=== PATIENT | female | born 1985 | race Caucasian/White ===

== ENCOUNTER 2019-01-22 12:30 | Observation (INO) ==
--- NOTE | 2019-01-22 13:12 | Emergency Department Note ---
Entered by Marimar Begum acting as a scribe for Cruz Colvin MD History of Present Illness General Chief complaint: TIA Symptoms Stated complaint: STROKE SYMTOMS Time Seen by Provider: 01/22/19 12:38 Source: patient History of Present Illness Onset (ago): day(s) (yesterday morning) Location: head Pain Consistency: + other (episode) Quality: + other (TIA symptoms) Associated symptoms: + denies other symptoms (vision changes, abdominal pain), + fever/chills (chills), + headaches, + nausea/vomiting (nausea) and + other (feeling like she is drooling, bright lights bothering her, hot flashes, lightheadedness, trouble walking); no cough The patient is a 33 year old female who presents to the Emergency Room with complaints of an episode of TIA symptoms starting yesterday morning. The patient states that 3 mornings ago she woke up at 4 AM to use the restroom. She reports that when she did she fell because the whole left side of her body was numb. She states that she couldnt speak either and ended up having bladder incontinence. She states that she went to [facility] where they did an EEG, MRI, CTA, echo, and evaluated her carotids, but everything was negative. She reports that they kept her for till the next day before discharging her home. She notes that they told her it was either migraines or TIAs. She notes that they started her on Aspirin. She reports that during that time, her left sided weakness persisted, but her slurred speech got better. She notes that it was almost back to normal when she was discharged. The patient states that yesterday morning, she then woke up with slurred speech again. She states that she followed up with her PCP who told her to come to the ED if it did not get better by today. She reports that she came to the ED because it did not get better and she started to develop a frontal headache. The patient complains of feeling like she is drooling, bright lights bothering her, hot flashes, chills, nausea, lightheadedness, and trouble walking. The patient denies vision changes, cough, abdominal pain, and the chance of . Home Medications Home Medications Medication Instructions Recorded Confirmed Type alprazolam [Xanax] 0.5 mg PO UD PRN 01/22/19 01/22/19 History aspirin [Aspirin Low Dose] 81 mg PO QAM 01/22/19 01/22/19 History ibuprofen 400 mg PO Q6H PRN 01/22/19 01/22/19 History melatonin 5 mg PO HS PRN 01/22/19 01/22/19 History phentermine 37.5 mg PO QAM 01/22/19 01/22/19 History tramadol 50 mg PO Q4H PRN 01/22/19 01/22/19 History Allergies Allergy/AdvReac Type Severity Reaction Status Date / Time No Known Allergies Allergy Unverified 01/22/19 13:35 Past Med/Surg History Medical History No known health problems Family History Other No significant family history Social History Preferred Language: Turkmen marital status: Current Living Situation: Family current occupational status: employed Feels Safe at Home: Yes Review of Systems See HPI for pertinent positives & negatives. and A total of 10 systems reviewed and were otherwise negative Physical Exam Vital Signs Vital Signs - 24 hr 01/22/19 12:32 01/22/19 13:15 01/22/19 14:32 Temperature 36.9 C Temperature Source Oral Sepsis Recent Fever Within 48 Hours No Sepsis New/Unexplained Change in Mental Status No Sepsis Action Taken by Nursing No Action Required Pulse Rate 89 Pulse Rate [Left Finger] 82 75 Respiratory Rate 16 15 20 Respiratory Effort / Characteristics Non-Labored Spontaneous Non-Labored Non-Labored Respiratory Depth Normal Normal Normal Respiratory Pattern Regular Regular Blood Pressure 132/89 Blood Pressure [Right Arm] 126/76 134/74 Blood Pressure Mean 103 Blood Pressure Mean [Right Arm] 92 94 Blood Pressure Position Sitting Pulse Oximetry 100 96 95 Oxygen Delivery Method Room Air Room Air Room Air 01/22/19 15:00 01/22/19 16:00 01/22/19 17:17 Temperature Temperature Source Sepsis Recent Fever Within 48 Hours Sepsis New/Unexplained Change in Mental Status Sepsis Action Taken by Nursing Pulse Rate Pulse Rate [Left Finger] 81 74 81 Respiratory Rate 17 19 21 Respiratory Effort / Characteristics Non-Labored Non-Labored Non-Labored Respiratory Depth Normal Normal Normal Respiratory Pattern Regular Regular Regular Blood Pressure Blood Pressure [Right Arm] 104/59 L 99/71 L 105/80 Blood Pressure Mean Blood Pressure Mean [Right Arm] 74 80 88 Blood Pressure Position Pulse Oximetry 99 97 100 Oxygen Delivery Method Room Air Room Air Room Air 01/22/19 18:00 Temperature Temperature Source Sepsis Recent Fever Within 48 Hours Sepsis New/Unexplained Change in Mental Status Sepsis Action Taken by Nursing Pulse Rate Pulse Rate [Left Finger] 84 Respiratory Rate 84 H Respiratory Effort / Characteristics Non-Labored Respiratory Depth Normal Respiratory Pattern Regular Blood Pressure Blood Pressure [Right Arm] 110/76 Blood Pressure Mean Blood Pressure Mean [Right Arm] 87 Blood Pressure Position Pulse Oximetry 95 Oxygen Delivery Method Room Air General: Non-ill appearing young female who has dysarthric speech. She has no word finding problems, but is difficult to understand some words due to tongue weakness. HEENT: Normal cephalic atraumatic. Pupils are equal round and reactive to light. Extraocular movements are intact. Oropharynx is pink with moist mucous membranes. No swelling of the mouth lips or tongue. Neck: Supple with a midline trachea. No meningeal signs or stiffness, no JVD or bruits. No Stridor. Chest: Clear to auscultation bilaterally. No wheezes or rhonchi. No increased work of breathing. Heart: regular rate and rhythm. Abdomen: Soft nontender, nondistended without rebound guarding or rigidity. Extremities: No cyanosis clubbing or edema. No calf tenderness or asymmetry Spine/Back. Non tender to palpation. No CVA tenderness Skin: Good turgor without rashes. Neurologic exam: Cranial nerves two through 12 are intact. Sensation are intact and symmetrical throughout. Some mild weakness of the left side which she says has been there since Sunday. Course 1239: Past medical records reviewed. The patient was evaluated in room C4. A complete history and physical exam was performed. 1308: I reevaluated the patient and she is resting comfortably. They are currently placing her IV. 1402: I reevaluated the patient and she is becoming nauseated. She reports that she did receive Phenergan in the hospital. I am going to emergency services director her some Benadryl. She notes that she had trouble speaking prior to receiving the Phenergan. 1510: Upon reevaluation, the patient is resting comfortably. I discussed findings and results with her. She verbalized agreement of the treatment plan. 1514: I discussed the patient's case with Dr. Sara GARZA Hospitalist. She will evaluate the patient for further management and requested that I speak to a neurologist. 1521: I discussed the patient's case with Dr. Weinberg- Neurologist. He states that h e will repeat the MRI and that it could still be a migraine if the MRI is negative. 1731: I reevaluated the patient and she is stable. She asked if she could go home and I recommended that she stay. She is will to stay. Consultations Consultation #1: I discussed the patient's case with Dr. Sara GARZA Hospitalist. She will evaluate the patient for further management and requested that I speak to a neurologist. Time: 15:14 Consultation #2: I discussed the patient's case with Dr. Weinberg- Neurologist. He states that he will repeat the MRI and that it could still be a migraine if the MRI is negative. Time: 15:21 Administered Medications Gadobutrol (Gadavist 65ml) 9.5 ml IV ONCE PRN PRN Reason: Interaction Checking Stop: 01/26/19 18:52 Last Admin: 01/22/19 18:54 Dose: 9.5 ml Documented by: [id number] Ioversol (Optiray 320 125ml) 119 ml IV ONCE PRN PRN Reason: Interaction Checking Stop: 01/26/19 14:06 Last Admin: 01/22/19 14:07 Dose: 119 ml Documented by: [id number] Discontinued Medications Diphenhydramine HCl (Benadryl) 12.5 mg IV NOW STA Stop: 01/22/19 14:02 Last Admin: 01/22/19 14:27 Dose: 12.5 mg Documented by: [id number] Medical Decision Making Differential Diagnosis Differential diagnoses include stroke, TIA, vascular pathology, electrolyte or metabolic abnormality. Medical Records Attestation: I reviewed the patient's medical records. Home Medications Current Medication List: was personally reviewed by me Laboratory Data Attestation: I reviewed the patient's lab results. Result diagrams: 01/22/19 13:09 01/22/19 13:09 Lab Results 01/22/19 01/22/19 01/22/19 Range/Units 12:51 13:09 13:09 WBC 4.51 L (4.8-10.8) K/uL RBC 5.01 (4.2-5.4) M/uL Hgb 14.3 (12.0-16.0) g/dL POC Hgb (12.0-16.0) g/dl Hct 44.8 (37-47) % POC Hct (37-47) % MCV 89.4 (80-100) fL MCH 28.5 (25-34) pg MCHC 31.9 L (32-36) g/dL RDW Std Deviation 41.6 (36.4-46.3) fL RDW Coeff of Crow 12.8 (11.5-14.5) % Plt Count 207 (130-400) K/uL MPV 10.3 (7.4-10.4) fL Immature Gran % (Auto) 0.2 % Neut % (Auto) 55.5 % Lymph % (Auto) 29.5 % [place] % (Auto) 13.5 % Eos % (Auto) 0.9 % Baso % (Auto) 0.4 % Immature Gran # (Auto) 0.01 (0.00-0.02) K/uL Neut # (Auto) 2.50 (1.4-6.5) K/uL Lymph # (Auto) 1.33 (1.2-3.4) K/uL [place] # (Auto) 0.61 H (0.11-0.59) K/uL Eos # (Auto) 0.04 (0-0.5) K/uL Baso # (Auto) 0.02 (0-0.2) K/uL PT 10.0 (9.0-12.0) Seconds INR 1.0 (0.9-1.1) APTT 24.1 (21.0-31.0) Seconds PTT Ratio 0.9 POC Sodium (135-144) mEq/L Sodium (136-145) mmol/L POC Potassium (3.3-5.0) mEq/L Potassium (3.5-5.1) mmol/L POC Chloride (101-112) mEq/L Chloride (98-107) mmol/L Carbon Dioxide (21-32) mmol/L POC Total CO2 (24-31) mEq/l Anion Gap (3-11) POC Anion Gap (16-25) mmol/L POC BUN (7-18) mg/dl BUN (7-18) mg/dl Creatinine (0.6-1.2) mg/dl POC Creatinine (0.6-1.3) mg/dl Est Cr Clr Drug Dosing ml/min Est GFR ( Amer) Est GFR (Non-Af Amer) BUN/Creatinine Ratio (10-20) Glucose (70-99) mg/dl POC Glucose 85 (70-99) POC Glucose (other) (70-99) mg/dl Calcium (8.5-10.1) mg/dl POC Ioniz Calcium Zach (1.12-1.32) mmol/l Magnesium (1.8-2.4) mg/dl Total Bilirubin (0.2-1) mg/dl AST (15-37) U/L ALT (12-78) U/L Alkaline Phosphatase (45-117) U/L Troponin I (0-0.045) ng/ml Total Protein (6.4-8.2) gm/dl Albumin (3.4-5.0) gm/dl Globulin (2.5-4.0) gm/dl Albumin/Globulin Ratio (0.9-2) Lyme Disease IgG Ab (Negative) Lyme Disease IgM Ab (Negative) 01/22/19 01/22/19 01/22/19 Range/Units 13:09 13:09 13:17 WBC (4.8-10.8) K/uL RBC (4.2-5.4) M/uL Hgb (12.0-16.0) g/dL POC Hgb 15.3 (12.0-16.0) g/dl Hct (37-47) % POC Hct 45 (37-47) % MCV (80-100) fL MCH (25-34) pg MCHC (32-36) g/dL RDW Std Deviation (36.4-46.3) fL RDW Coeff of Crow (11.5-14.5) % Plt Count (130-400) K/uL MPV (7.4-10.4) fL Immature Gran % (Auto) % Neut % (Auto) % Lymph % (Auto) % [place] % (Auto) % Eos % (Auto) % Baso % (Auto) % Immature Gran # (Auto) (0.00-0.02) K/uL Neut # (Auto) (1.4-6.5) K/uL Lymph # (Auto) (1.2-3.4) K/uL [place] # (Auto) (0.11-0.59) K/uL Eos # (Auto) (0-0.5) K/uL Baso # (Auto) (0-0.2) K/uL PT (9.0-12.0) Seconds INR (0.9-1.1) APTT (21.0-31.0) Seconds PTT Ratio POC Sodium 142 (135-144) mEq/L Sodium 141 (136-145) mmol/L POC Potassium 4.1 (3.3-5.0) mEq/L Potassium 4.0 (3.5-5.1) mmol/L POC Chloride 103 (101-112) mEq/L Chloride 108 H (98-107) mmol/L Carbon Dioxide 29 (21-32) mmol/L POC Total CO2 26 (24-31) mEq/l Anion Gap 4.0 (3-11) POC Anion Gap 18.0 (16-25) mmol/L POC BUN 12 (7-18) mg/dl BUN 12 (7-18) mg/dl Creatinine 0.89 (0.6-1.2) mg/dl POC Creatinine 0.9 (0.6-1.3) mg/dl Est Cr Clr Drug Dosing 99.4 ml/min Est GFR ( Amer) 100.1 Est GFR (Non-Af Amer) 86.4 BUN/Creatinine Ratio 13.5 (10-20) Glucose 82 (70-99) mg/dl POC Glucose (70-99) POC Glucose (other) 86 (70-99) mg/dl Calcium 8.7 (8.5-10.1) mg/dl POC Ioniz Calcium Zach 1.18 (1.12-1.32) mmol/l Magnesium 2.1 (1.8-2.4) mg/dl Total Bilirubin 0.2 (0.2-1) mg/dl AST 28 (15-37) U/L ALT 31 (12-78) U/L Alkaline Phosphatase 61 (45-117) U/L Troponin I < 0.015 (0-0.045) ng/ml Total Protein 7.3 (6.4-8.2) gm/dl Albumin 3.7 (3.4-5.0) gm/dl Globulin 3.6 (2.5-4.0) gm/dl Albumin/Globulin Ratio 1.0 (0.9-2) Lyme Disease IgG Ab Negative (Negative) Lyme Disease IgM Ab Negative (Negative) Imaging Data Radiologist's Impression: Radiology results as stated below per my review and the radiologist's interpretation: CT OF THE HEAD WITHOUT CONTRAST AND CT ANGIOGRAPHY OF THE HEAD CLINICAL HISTORY: slurred speech, left sided weakness COMPARISON STUDY: No previous studies for comparison. TECHNIQUE: Unenhanced and arterial phase imaging of the head was performed. Intravenous injection of 119 cc Optiray 320 IV was uneventful. Sagittal and coronal reconstructions were viewed as well as maximal intensity projections on an independent 3-D workstation. FINDINGS: No acute intracranial hemorrhage, midline shift or mass effect is present. Brain volume is normal. The ventricular system is normal. Basilar cist erns are patent. There are no extra-axial collections. Clemons-white differentiation is maintained. There are no findings to suggest acute dural sinus thrombosis or acute territorial infarct. A small mucous retention cyst within the right maxillary sinus is noted. There are no significant calvarial abnormalities. The bilateral M1, M2, A1 and A2 segments are patent. There is no intracranial aneurysm, stenosis or abrupt vessel cut off. The posterior circulation is also intact. No dissection is noted within the major intracranial vessels. IMPRESSION: 1. No acute intracranial findings. 2. Unremarkable CTA of the head. Electronically signed by: Brennan An M.D. 01/22/2019 2:[address] ANGIOGRAM OF THE NECK CLINICAL HISTORY: Slurred speech. Left-sided weakness. COMPARISON STUDY: No priors. TECHNIQUE: Following the IV administration of 119 of Optiray 320, CT angiogram of the neck was performed from the aortic arch to the skull base. Images are reviewed in the axial, sagittal, and coronal planes. 3-D MIPS images are created and assessed. IV contrast was administered without complication. All measurements were calculated based on NASCET criteria. A dose lowering technique was utilized adhering to the principles of ALARA. FINDINGS: Thoracic aorta: Visualized portions of the thoracic aorta are normal in caliber. The aortic arch demonstrates standard 3-vessel anatomy. Right carotid arterial system: The right common carotid artery is widely patent, as are the right internal and external carotid arteries. Left carotid arterial system: The left common carotid artery is widely patent, as are the left internal and external carotid arteries. Vertebral arteries: Widely patent and codominant. Subclavian arteries: Widely patent bilaterally. Intracranial vasculature: The partially visualized intracranial vessels at the skull base are patent. Jugular veins: Widely patent bilaterally. Brain parenchyma: The visualized brain parenchyma the skull base is within normal limits. Lung apices: Partially visualized upper lobe lung parenchyma appears clear. Soft tissues: The visualized pharyngeal soft tissues are normal in appearance noting angiographic phase technique. The oropharyngeal airway appears widely patent. The salivary and thyroid glands are normal in appearance. No cervical lymphadenopathy is seen. Skeletal structures: The visualized calvarium at the skull base appears intact. The imaged cervical spine is within normal limits. Sinuses and mastoids: A 1.4 cm retention cyst is noted in the right maxillary an trum. The remaining visualized paranasal sinuses are clear. The mastoid air cells are well pneumatized. IMPRESSION: Unremarkable CT angiogram of the neck. Electronically signed by: Khang Gramajo M.D. 01/22/2019 2:25 PM ECG Data Attestation: I personally reviewed and interpreted this ECG as follows: Indication: weakness Rate (beats per minute): 78 Rhythm: normal sinus Findings: no PAC, no PVC, no ST depression, no ST elevation, no acute ischemic change and no ectopy Comparison ECG Date: no prior available Blood Pressure Blood Pressure Findings: Low blood pressure Blood Pressure Disposition: further management by hospitalist RALPH Narrative This patient comes in as described above. She was placed in room C4. She was hospitalized Sunday into Sunday after having strokelike symptoms at [facility]. She tells me the work-up was negative. She says she has had persistent weakness of her left arm and leg since then. She had slurred speech but it got mostly better until yesterday morning and since then she has had persistent slurred speech there is nothing different today and her symptoms have been present for over 24 hours at this point. I am concerned about her symptoms however at this point she would not be a stroke alert as she is well outside the TPA or are likely intervention window since she is 24 hours out. I asked her case management team to get her records and ordered stroke work-up here including CTA of the head. Multiple blood testing was obtained as well. CTA of the head and neck was obtained which was unremarkable. No acute electrolyte or metabolic abnormalities. No findings to suggest arrhythmia or cardiac disease. I did review the old records from her recent hospitalization and she had negative CAT scan/CT of the head and neck as well as MRI and ultrasounds of her legs. I am concerned however with her persistence of symptoms with her dysarthria and her left-sided weakness. I do think she needs to be a dmitted/observe for further neurologic evaluation. It is possible this could be a complex migraine however with it lasting so long, I am concerned about stroke or neurologic process. I did consult the [facility] hospitalist to see her in the ER. she has asked that I talk to neurology talk to Dr. Weinberg, on-call neurologist, who recommended repeating the MRI in the hospital. The patient and her mother are happy with the plan and she will be admitted/observed. Impression & Plan Cerebrovascular accident, Dysarthria, Acute left-sided muscle weakness, Nausea Discharge Plan Visit Data Chief Complaint: TIA Symptoms Stated Complaint: STROKE SYMTOMS ED Provider: Cruz Colvin Discharge Problem: Cerebrovascular accident, Dysarthria, Acute left-sided muscle weakness, Nausea Patient Disposition: Being Evaluated by Hospitalist Forms Stand Alone Forms: My [facility] Prescriptions Prescriptions: No Action phentermine 37.5 mg Tablet 37.5 mg PO QAM RF: 0 aspirin [Aspirin Low Dose] 81 mg Tablet,Delayed Release (Dr/Ec) 81 mg PO QAM RF: 0 tramadol 50 mg Tablet 50 mg PO Q4H PRN (Reason: Pain) RF: 0 alprazolam [Xanax] 0.5 mg Tablet 0.5 mg PO UD PRN (Reason: Anxiety/Sleep) RF: 0 ibuprofen 200 mg Tablet 400 mg PO Q6H PRN (Reason: Pain) RF: 0 melatonin 5 mg Tablet 5 mg PO HS PRN (Reason: Sleep) RF: 0 Referrals Referrals: Suzanna Epstein CRNP [Primary Care Provider] - The scribe's documentation has been prepared under my direction and personally reviewed by me in its entirety. I confirm that the note above accurately reflects all work, treatment, procedures, and medical decision making performed by me.
[2019-01-22 13:18] LABS: Basophils # (auto) 0.02 K/uL (0-0.2); Basophils % (auto) 0.4 %; Eosinophils # (auto) 0.04 K/uL (0-0.5); Eosinophils % (auto) 0.9 %; Hematocrit (blood only) 44.8 % (37-47); Hemoglobin 14.3 g/dL (12.0-16.0); Immature Granulocytes # (auto) 0.01 K/uL (0.00-0.02); Immature Granulocytes % (auto) 0.2 %; Lymphocytes # (auto) 1.33 K/uL (1.2-3.4); Lymphocytes % (auto) 29.5 %; Mean Corpuscular Hgb Conc 31.9 g/dL (32-36); Mean Corpuscular Volume 89.4 fL (80-100); Mean Platelet Volume 10.3 fL (7.4-10.4); Monocytes # (auto) 0.61 K/uL (0.11-0.59); Monocytes % (auto) 13.5 %; Neutrophils % (auto) 55.5 %; Platelet Count 207 K/uL (130-400); RDW Coefficient of Variation 12.8 % (11.5-14.5); RDW Standard Deviation 41.6 fL (36.4-46.3); Red Blood Count 5.01 M/uL (4.2-5.4); White Blood Count 4.51 K/uL (4.8-10.8)
[2019-01-22 13:29] LABS: iSTAT Creatinine 0.9 mg/dl (0.6-1.3); iSTAT Hemoglobin 15.3 g/dl (12.0-16.0); iSTAT Ionized Calcium 1.18 mmol/l (1.12-1.32); iSTAT Potassium 4.1 mEq/L (3.3-5.0)
[2019-01-22 13:36] LABS: Partial Thromboplastin Ratio 0.9; Partial Thromboplastin Time 24.1 Seconds (21.0-31.0)
[2019-01-22 13:38] LABS: Alanine Aminotransferase 31 U/L (12-78); Albumin Level 3.7 gm/dl (3.4-5.0); Aspartate Aminotransferase 28 U/L (15-37); BUN Creatinine Ratio 13.5 (10-20); Blood Urea Nitrogen 12 mg/dl (7-18); Calcium 8.7 mg/dl (8.5-10.1); Carbon Dioxide 29 mmol/L (21-32); Chloride 108 mmol/L (98-107); Creatinine Clr Calc Pharmacy 99.4 ml/min; Est GFR (African American) 100.1; Est GFR (Non-African American) 86.4; Glucose 82 mg/dl (70-99); Magnesium 2.1 mg/dl (1.8-2.4); Sodium 141 mmol/L (136-145)
[2019-01-22 13:42] LABS: Alkaline Phosphatase 61 U/L (45-117); Bilirubin,Total 0.2 mg/dl (0.2-1); Globulin 3.6 gm/dl (2.5-4.0); Total Protein 7.3 gm/dl (6.4-8.2); Troponin I < 0.015 ng/ml (0-0.045)
[2019-01-22] MEDS ORDERED: DiphenhydrAMINE HCL 50 MG/ML VIAL IV STA (14:01)
[2019-01-22] MEDS ORDERED: OPTIRAY 320 125ml IV PRN (14:07)
--- NOTE | 2019-01-22 14:26 | CT Scan Report ---
CT ANGIOGRAM OF THE NECK CLINICAL HISTORY: Slurred speech. Left-sided weakness. COMPARISON STUDY: No priors. TECHNIQUE: Following the IV administration of 119 of Optiray 320, CT angiogram of the neck was perfor med from the aortic arch to the skull base. Images are reviewed in the axial, sagittal, and coronal p lanes. 3-D MIPS images are created and assessed. IV contrast was administered without complication. A ll measurements were calculated based on NASCET criteria. A dose lowering technique was utilized adh ering to the principles of ALARA. FINDINGS: Thoracic aorta: Visualized portions of the thoracic aorta are normal in caliber. The aortic arch demo nstrates standard 3-vessel anatomy. Right carotid arterial system: The right common carotid artery is widely patent, as are the right int ernal and external carotid arteries. Left carotid arterial system: The left common carotid artery is widely patent, as are the left analysis internship al and external carotid arteries. Vertebral arteries: Widely patent and codominant. Subclavian arteries: Widely patent bilaterally. Intracranial vasculature: The partially visualized intracranial vessels at the skull base are patent. Jugular veins: Widely patent bilaterally. Brain parenchyma: The visualized brain parenchyma the skull base is within normal limits. Lung apices: Partially visualized upper lobe lung parenchyma appears clear. Soft tissues: The visualized pharyngeal soft tissues are normal in appearance noting angiographic pha se technique. The oropharyngeal airway appears widely patent. The salivary and thyroid glands are nor mal in appearance. No cervical lymphadenopathy is seen. Skeletal structures: The visualized calvarium at the skull base appears intact. The imaged cervical s pine is within normal limits. Sinuses and mastoids: A 1.4 cm retention cyst is noted in the right maxillary antrum. The remaining v isualized paranasal sinuses are clear. The mastoid air cells are well pneumatized. IMPRESSION: Unremarkable CT angiogram of the neck. Electronically signed by: Khang Gramajo M.D. 01/22/2019 2:25 PM
--- NOTE | 2019-01-22 14:26 | CT Scan Report ---
CT OF THE HEAD WITHOUT CONTRAST AND CT ANGIOGRAPHY OF THE HEAD CLINICAL HISTORY: slurred speech, left sided weakness COMPARISON STUDY: No previous studies for comparison. TECHNIQUE: Unenhanced and arterial phase imaging of the head was performed. Intravenous injection of 119 cc Optiray 320 IV was uneventful. Sagittal and coronal reconstructions were viewed as well as max imal intensity projections on an independent 3-D workstation. FINDINGS: No acute intracranial hemorrhage, midline shift or mass effect is present. Brain volume is normal. The ventricular system is normal. Basilar cisterns are patent. There are no extra-axial colle ctions. Clemons-white differentiation is maintained. There are no findings to suggest acute dural sinus thrombosis or acute territorial infarct. A small mucous retention cyst within the right maxillary sin us is noted. There are no significant calvarial abnormalities. The bilateral M1, M2, A1 and A2 segments are patent. There is no intracranial aneurysm, stenosis or a brupt vessel cut off. The posterior circulation is also intact. No dissection is noted within the jo ann or intracranial vessels. IMPRESSION: 1. No acute intracranial findings. 2. Unremarkable CTA of the head. Electronically signed by: Brennan An M.D. 01/22/2019 2:25 PM
[2019-01-22 16:26] LABS: Lyme Ab IgG w/WB Rflx Negative (Negative); Lyme Ab IgM w/WB Rflx Negative (Negative)
[2019-01-22] MEDS ORDERED: GADOBUTROL 65ML VIAL IV PRN (18:53)
--- NOTE | 2019-01-22 19:13 | Magnetic Resonance Report ---
Brain MRI WITH AND WITHOUT CONTRAST HISTORY: weakness of the left side and slurred speech TECHNIQUE: Multiplanar multisequence MRI of the brain was performed both before and after the intrave nous administration of contrast. COMPARISON STUDY: Head CT 8 01/22/2019. FINDINGS: There are no areas of restricted diffusion to suggest acute infarction. The midline structu res are intact. Small retention cyst within the right maxillary sinus. The mastoid air cells are gt r. The ventricles and sulci are within normal limits for age. There is no mass, hematoma, midline shannon ft. The major vascular flow-voids at the skull base are well maintained. Postcontrast sequences show no areas of abnormal enhancement. IMPRESSION: No acute intracranial abnormality. Electronically signed by: Rojas Adair M.D. 01/22/2019 7:12 PM
[2019-01-22] MEDS ORDERED: ALPRAZolam 0.5 MG TABLET PO PRN (19:49)
[2019-01-22] MEDS ORDERED: ONDANSETRON INJ 2 MG/ML 2 ML VIAL IV PRN (19:49)
[2019-01-22] MEDS ORDERED: ACETAMINOPHEN 325 MG TAB PO PRN (19:49)
[2019-01-22] MEDS ORDERED: TRAMADOL HCL 50 MG TABLET PO PRN (19:49)
[2019-01-22] MEDS ORDERED: ENOXAPARIN INJ 40 MG/0.4 ML SYR SQ SCH (21:00)
[2019-01-22] MEDS: SODIUM CHLORIDE 0.9% 1000ML 1,000 ML IV SCH (21:44)
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
[2019-01-23 02:53] LABS: Appearance Urine Clear (Clear); Bacteria Urine Automated Negative (Negative); Bilirubin Urine Negative (Negative); Blood Urine Trace (Negative); Color Urine Yellow; Epithelial Cell Urine Auto >30 /lpf (0-5); Glucose Urine UA Negative (Negative); Ketones Urine Negative (Negative); Leukocyte Esterase Urine Negative (Negative); Nitrite Urine Negative (Negative); Protein Urine Negative (Negative); RBC Urine Automated 0-4 /hpf (0-4); Specific Gravity Urine 1.012 (1.000-1.030); Urobilinogen Urine Negative (Negative); pH Urine 6.5 (4.5-7.5)
[2019-01-23 03:08] LABS: Cast Urine Automated 0 /lpf (0-5)
[2019-01-23 03:09] LABS: Amorphous Sediment Urine Present (None Prsent)
[2019-01-23 06:55] LABS: Basophils # (auto) 0.02 K/uL (0-0.2); Basophils % (auto) 0.5 %; Eosinophils # (auto) 0.07 K/uL (0-0.5); Eosinophils % (auto) 1.9 %; Hematocrit (blood only) 40.4 % (37-47); Hemoglobin 12.8 g/dL (12.0-16.0); Lymphocytes # (auto) 1.42 K/uL (1.2-3.4); Lymphocytes % (auto) 38.3 %; Mean Corpuscular Hgb Conc 31.7 g/dL (32-36); Mean Corpuscular Volume 89.4 fL (80-100); Mean Platelet Volume 10.1 fL (7.4-10.4); Monocytes # (auto) 0.49 K/uL (0.11-0.59); Monocytes % (auto) 13.2 %; Neutrophils # (auto) 1.71 K/uL (1.4-6.5); Neutrophils % (auto) 46.1 %; Platelet Count 171 K/uL (130-400); RDW Coefficient of Variation 12.7 % (11.5-14.5); RDW Standard Deviation 41.6 fL (36.4-46.3); Red Blood Count 4.52 M/uL (4.2-5.4); White Blood Count 3.71 K/uL (4.8-10.8)
[2019-01-23 07:26] LABS: Albumin Level 3.1 gm/dl (3.4-5.0); BUN Creatinine Ratio 10.2 (10-20); Calcium 8.1 mg/dl (8.5-10.1); Creatinine Clr Calc Pharmacy 102.7 ml/min; Est GFR (African American) 104.3; Potassium 3.7 mmol/L (3.5-5.1)
[2019-01-23 07:29] LABS: Bilirubin,Total 0.2 mg/dl (0.2-1); Globulin 3.2 gm/dl (2.5-4.0); Total Protein 6.3 gm/dl (6.4-8.2)
[2019-01-23] MEDS ORDERED: ASPIRIN 81 MG ECTAB PO SCH (09:00)
--- NOTE | 2019-01-23 09:00 | Neurology Consultation ---
Date of Consultation January 23, 2019 Assessment & Plan (1) Dysarthria: (2) Acute left-sided muscle weakness: (3) Tongue deviation: (4) Complicated migraine: (5) Anxiety: Patient has had the onset January 19, of significant dysarthria, left hemiparesis, and tongue weakness associated with bifrontal headache the background of significant anxiety. Clinically she is making significant improvements neurologically over the last several days and her headache is resolved. Her speech is markedly better although she still has some dysarthria. Her left upper extremity seems close to normal although the left leg is still mildly weak. Her gait is affected because of this. She has an unusual twisted tongue weakness with decreased strength to the right. MRI of the brain was unremarkable with no stroke and no signs of previous small vessel ischemic disease. CT angiography of the head and neck are unremarkable with no vessel anomalies or stenoses. Laboratory studies are unremarkable and echocardiogram apparently was normal at another hospital earlier this week. A lipid profile was reportedly normal as well. Unfortunately I do not have the results from [facility]. She has no significant risk factors for cerebral vascular disease including no history of cigarette/tobacco use, hypertension, diabetes, or dyslipidemia. Her alcohol use is infrequent. Overall, this is entirely consistent with a complicated migraine (areas of vasospasm giving symptoms along with vasodilation giving headache). She is improving. I have seen cases of complicated migraine take a week or so for the symptoms to resolve. Each day she should be better than the day before. This is not a CVA because the MRI was totally normal 4 days after the onset of symptoms. This is not a TIA because the symptoms have persisted and did not resolve. Patient has significant anxiety which has been worse recently. She does not have depression. Recommendations: 1. Physical, occupational, and speech therapy evaluation and treatment. Increase activity as able. 2. Obtain echocardiogram and fasting lipid profile if not able to get records/results from [facility] for these. 3. The patient was put on 81 milligram aspirin tablet at [facility]. This is reasonable to keep for now but I am not sure she needs it over time. There is no evidence of cerebral vascular disease risk factors so there is no reason for daily aspirin. 4. Consider 10 milligrams escitalopram daily, for anxiety. 5. Although complicated migraine involved vasospasm, and verapamil is my drug of choice to prevent vasospasm and complicated migraines, this is only her 1st event and she does not have a history of hypertension or migraines. Therefore I would hold off on this medication for now. 6. I can follow as an outpatient if desired. Otherwise, I have no further testing or treatment recommendations to make. Overall, I spent a total of 90 minutes with this case including review of records, review of MRI films, direct evaluation the patient bedside, and discussing the case with the patient at bedside, nursing staff at bedside, and Dr. Augustine, including differential diagnosis and treatment options. History of Present Illness Reason for Consultation: Patient is a 33-year-old, who I was asked to see the request of Dr. Augustine, for neurologic consultation regarding persistent dysarthria and left hemiparesis, question stroke versus other. Requesting Physician: Dr. Augustine Attending Physician: Jairo Augustine MD History of Present Illness This patient has no history of headaches or migraines in her teens or 20s. She has no history of heart disease, hypertension, diabetes, or cigarette/tobacco use. More recently, she has had some anxiety from a number of situational stresses. She takes 0.5 milligrams and occasionally at night for sleep, phentermine as an appetite suppressant, and tramadol 50 milligrams on occasion low back. In September of this year, Dr. Fernandez gave lumbar spine injections which have considerably low back is been feeling quite well. Patient has a interesting weight loss history. She weighed over 300 pound several years ago. Through diet and exercise she got down to about 170 pounds or so. Currently she is back up to about 204 pounds. Over the past week prior to admission patient has been having some increased stresses due to situational things at home work. By September 18 stress was quite intense she an episode crying in the evening because of this stress. She also had a bifrontal headache of a pressure nature. This was the 1st time she has had quite a while she went to bed and woke up around 0400 on January 19 noting weakness in her left face, arm, and leg. There was no robert numbness or lack of feeling. Her speech was extremely slurred and she had great trouble getting words out. She was slow in getting words. She knew exactly what she wanted to say and this added to frustration as she could not get the words was not very intelligible. She had total recall all events and had no loss of consciousness altered consciousness. She had no blurry or double vision. Her tongue was not working correctly she felt but she could swallow a little bit was not choking. She had no pain except for the bifrontal headache. Apparently she went to [facility], had a telestroke evaluation by the stroke physicians at [facility] and ended being admitted. CT, CT angiography of the head neck, echocardiogram, EEG, and MRI of the brain were all reportedly unremarkable. The patient's speech improved to almost normal and her weakness although somewhat improved was still present on the left when she was discharged to home in the evening of January 20. She did have a bifrontal headache that evening also. When she awoke on January 21 she felt the slurred speech was worse and she had a bifrontal headache. Left-sided weakness was there and she had trouble ambulating because of the left leg. There was a little bit of lightheadedness, photophobia, nausea, vomiting. She had chills and hot flashes. She did the best she could on January 21. When she woke up on January 22 the symptoms persisted. She talked to her primary care physician who said to come to the emergency room. Her family members insisted she come to the emergency room also. She arrived at [facility] emergency room at 1232. Pulse was 89, blood pressure 132/89, respiratory rate 16, temperature 36.9, and O2 saturation 100 percent. She was described as having some dysarthria and left-sided weakness. Although she had a mild bifrontal headache when arriving at the emergency room by the time she was finished in the emergency room her headache resolved. CBC and Chem profile were unremarkable. Lyme antibody titers were negative. Urinalysis was unremarkable. CT scan of the head was unremarkable with no abnormalities. CT angiography of the head and neck were unremarkable with no vascular anomalies, aneurysms, or stenoses. MRI of the brain was unremarkable with no acute changes or even chronic/old ischemic changes. Overnight the patient did well with no issues. Repeat CBC and Chem profile were unremarkable this morning. This morning she has no pain or headache, dizziness, vision problems, or confusion/cognitive issues. Her speech is still slurred but she feels it is much better than it was yesterday. She feels she is able to the have a normal speed to her speech (not slow anymore) and she is more intelligible. She also feels that her left arm is much improved and her leg is somewhat better as well. Allergies Allergy/AdvReac Type Severity Reaction Status Date / Time No Known Allergies Allergy Unverified 01/22/19 13:35 Home Medications Home Medications Medication Instructions Recorded Confirmed Type alprazolam [Xanax] 0.5 mg PO UD PRN 01/22/19 01/22/19 History aspirin [Aspirin Low Dose] 81 mg PO QAM 01/22/19 01/22/19 History ibuprofen 400 mg PO Q6H PRN 01/22/19 01/22/19 History melatonin 5 mg PO HS PRN 01/22/19 01/22/19 History phentermine 37.5 mg PO QAM 01/22/19 01/22/19 History tramadol 50 mg PO Q4H PRN 01/22/19 01/22/19 History Patient History Medical History Conversion disorder TIA (transient ischemic attack) Cerebrovascular accident (Acute) Dysarthria (Acute) Acute left-sided muscle weakness (Acute) delivery delivered No known health problems Surgical History Hx of appendectomy Hx of cholecystectomy S/P tonsillectomy S/P tubal ligation Family History Mother No significant family history Father Psychiatric problem Alcoholism Social History Preferred Language: Swedish Communication Ability: Effective Queen'S Counsel Required: No Beliefs That Will Affect Care: None marital status: Current Living Situation: Spouse and Family current occupational status: employed 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 [employer] Other Information That Helps Us Care for You: No Feels Safe at Home: Yes Safety Concerns: Feels Safe At This Time Smoking Status: Never smoker Do You Dip or Chew Tobacco: No ; Second Hand Exposure: No ; Tobacco Cessation Education Requested by Patient: No Hx Alcohol Use: Yes Alcohol type: beer Alcohol Intake Frequency Comment: 1-2 beers per month Hx Substance Use: No Review of Systems Constitutional: + fatigue and + weakness; no fever Eyes: no diplopia, no eye pain and no worsening vision Ear, Nose, Mouth, Throat: no ear pain, no tinnitus, no hearing loss, no dizziness and no hoarseness Some trouble with swallowing because of not being able to manipulate her tongue well. Respiratory: no cough and no dyspnea Cardiovascular: no chest pain, no palpitations and no lightheadedness Gastrointestinal: no abdominal pain, no nausea and no vomiting Genitourinary: no dysuria, no urinary frequency and no urinary incontinence Musculoskeletal: no back pain, no neck pain, no radicular pain, no joint pain and no myalgia Integumentary: no rash and no lesions Neurologic: + gait abnormality, + localized weakness and + abnormal speech (Slurred); no generalized weakness, no tingling, no numbness, no tremor(s), no abnormal movements, no headache(s), no confusion and no memory loss Psychiatric: + anxiety; no depression, no irritability, no difficulty concentrating, no confusion and no hallucinations Endocrine: + fatigue; no flushing Hematologic / Lymphatic: no easy bleeding and no easy bruising Allergy / Immunological: no urticaria and no problem reported Physical Exam Physical Exam: The patient is right-handed. The patient is awake, alert, and attentive. Speech is without any aphasia. However, she has some consistent dysarthria with a nasal quality to it. She is fairly fluent and not slow or hesitant/choppy. She can name objects, repeat phrases, and has normal spontaneous speech. Mentation and thought processes are intact, with orientation to person, place and time, and normal fund of knowledge. Attention and concentration are normal. Mood and affect are normal and appropriate. General appearance and grooming are normal. Short and long- term memory are intact. The discs are sharp with positive venous pulsations bilaterally. There are no exudates, hemorrhages, or blood vessel changes seen. Pupils are 5 mm bilaterally and reactive to light. Extraocular eye muscles are intact without nystagmus. Visual acuity and visual panda seem normal grossly to confrontation. There are no deficits to sensation in the face in all 3 distributions of the fifth cranial nerve bilaterally. Corneal reflexes are positive bilaterally. Facial strength and symmetry was normal bilaterally. Hearing seems normal to whisper and finger rub bilaterally. Palate moves well without asymmetry. There is normal sternocleidomastoid and trapezius (shoulder shrug) strength bilaterally. Tongue is midline but appears twisted some to the left. Strength is reasonable pushing to the left but is weak pushing to the right. She cannot protrude her tongue correctly. Neck has a full range of motion without discomfort. There are no cervical bruits bilaterally. There are no cranial or ocular bruits. Heart is without murmur. There is a regular rhythm and rate. Cervical, thoracic, and lumbar spine are nontender to palpation. Gait is narrow based, with good arm swing and stance. However, she limps favoring the left leg. Turns are difficult. With outstretched arms there is no drift. There are no resting, postural, or action tremors. There is no ataxia with finger to nose testing. There is good facility in the hands. There is some decreased facility in the left foot compared to the right. No other abnormal involuntary movements are noted. Motor strength is 5/5 diffusely in the arms bilaterally including deltoids, biceps, triceps, brachioradialis, wrist flexors and extensors, packaging line attendant, and intrinsic hand muscles. Motor strength is 5/5 diffusely in the right leg including hip flexors, quadriceps, hamstrings, gastrocnemius, tibialis anterior, tibialis posterior, and Peroneii muscles. The left leg has 4/5 strength diffusely both proximally and distally with all muscles tested. I do detect some giveaway weakness in the tibialis anterior muscle on the left. Toe extensors are normal and there is good bulk in the extensor digitorum brevis muscles bilaterally. The limbs have good tone without rigidity or spasticity. There is no atrophy noted in the muscles. Muscle bulk is normal, there is no tenderness to palpation, no myotonia to percussion, and no fasciculations seen. Sensory examination is intact to touch and pin throughout all 4 limbs diffusely. Reflexes are 2/4 in the biceps, triceps, brachioradialis, quadriceps, and Achilles tendons bilaterally. There is no clonus bilaterally. Toes are downgoing with plantar stimulation bilaterally. Peripheral pulses are present and of normal quality distally in all 4 limbs. There is no peripheral edema noted in the limbs. Results & Data Vital Signs (Past 12 Hours) Vital Signs Temp Pulse Pulse Resp BP Pulse Ox 01/23/19 07:20 36.6 C 65 16 112/58 L 98 01/23/19 04:00 36.7 C 72 18 91/46 L 97 01/23/19 00:00 37.0 C 74 17 125/42 L 97 01/22/19 23:53 73 01/22/19 21:00 89 Diagnostic Findings Brain MRI WITH AND WITHOUT CONTRAST HISTORY: weakness of the left side and slurred speech TECHNIQUE: Multiplanar multisequence MRI of the brain was performed both before and after the intravenous administration of contrast. COMPARISON STUDY: Head CT 8 01/22/2019. FINDINGS: There are no areas of restricted diffusion to suggest acute infarction. The midline structures are intact. Small retention cyst within the right maxillary sinus. The mastoid air cells are clear. The ventricles and sulci are within normal limits for age. There is no mass, hematoma, midline shift. The major vascular flow-voids at the skull base are well maintained. Postcontrast sequences show no areas of abnormal enhancement. IMPRESSION: No acute intracranial abnormality. Electronically signed by: Rojas Adair M.D. 01/22/2019 7:12 PM PG Care Time/CCT Total # of Minutes Spent Total Time Spent with Patient: 90 minutes. Total time spent is greater than 50% in coordination of care (as documented) at patient's floor/unit and/or counseling patient:
[2019-01-23] MEDS ORDERED: ESCITALOPRAM OXALATE 10 MG TAB PO SCH (09:15)
[2019-01-23] MEDS: SODIUM CHLORIDE 0.9% 1000ML 1,000 ML IV SCH (10:34)
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
== END 2019-01-23 16:17 | disposition home or self-care (01) ==
LOC: 2E 12:30 → ED 12:30 → 2E 19:34